=== PATIENT | male | born 1965 | race Caucasian/White ===

== ENCOUNTER 2018-02-03 13:49 | Emergency (ER) | payer BC ==
[~2018-02-03] VITALS: Ht 180.3 cm; Wt 93.0 kg
[2018-02-03 14:11] VITALS: BP 137/78
--- NOTE | 2018-02-03 16:40 | NUR ---
PATIENT AMBULATED TO BED#12
--- NOTE | 2018-02-03 17:24 | NUR ---
PATIENT PRESENTS TO ED WITH PT STATED TODAY SUDDEN ONSET OF HEMATURIA AND PRESSURE SHARP TYPE PAIN AFTER HEMATURIA VOIDING . DENIES INJURY. DENIES N/V/D; SKIN IS PINK/WARM/DRY; AAOX4 WITH EVEN AND STEADY GAIT; LUNGS CLEAR BL; HR EVEN AND REGULAR; PT DENIES ANY FEVER, CP, SOB, OR COUGH AT THIS TIME; PATIENT STATES PAIN OF 0/10 AT THIS TIME; VSS; PATIENT POSITIONED FOR COMFORT; HOB ELEVATED; BEDRAILS UP X2; BED DOWN. ER MD MADE AWARE OF PT STATUS.
[2018-02-03 18:45] LABS: APPEARANCE,URINE CLEAR (CLEAR); BILIRUBIN,URINE NEGATIVE (NEGATIVE); BLOOD, URINE 1+ (NEGATIVE); COLOR,URINE YELLOW (YELLOW); LEUKOCYTE ESTERASE ,URINE NEGATIVE (NEGATIVE); NITRITE, URINE NEGATIVE (NEGATIVE); PH,URINE 6.5 (5.0-9.0); UGLUCOSE NEGATIVE (NEGATIVE)
[2018-02-03 18:54] LABS: RBC,URINE 11-20 (MOD) /HPF (0-5); WBC,URINE 0-5 (RARE) /HPF (0-5)
[2018-02-03 19:00] VITALS: BP 134/84
== END 2018-02-03 19:00 | disposition home or self-care (01) ==
LOC: MED 13:49
DX: R31.9 Hematuria, unspecified (principal); Z90.49 Acquired absence of other specified parts of digestive tract
CPT/HCPCS: 81001; 99283; 99284